=== PATIENT | female | born 1965 | race Caucasian/White ===

== ENCOUNTER 2017-06-22 10:12 | Emergency (ER) | payer BC, OTHER ==
--- NOTE | 2017-06-22 10:17 | PDOC ---
History of Present Illness - General Chief Complaint: Injury Stated Complaint: RT RIBCAGE PAIN Time Seen by Provider: 06/22/17 10:17 - History of Present Illness Initial Comments: 06/22/17 10:35 52yo F hx HTN p/w 3 days of right rib cage pain. Pt reports she was dancing the tango with her at home Wednesday night when he spun her and she fell onto the ground landing on her R ribs. REports no head strike as her head landed on pillows. Reports dull pain on her R ribs and is worried her ribs might be broken. Reports pain is worse with twisting movements and deep inspiration. No treatments tried. Denies other injuries. Has been in her [facility], denies recent fevers, chills, cp, sob, abd pain, n/v/d, LE edema, rashes. No recent travel or immobility. Past History - Past Medical History Allergies/Adverse Reactions: Allergies Allergy/AdvReac Type Severity Reaction Status Date / Time No Known Allergies Allergy Verified 06/22/17 10:13 Home Medications: Ambulatory Orders Bp Pill 1 tab PO DAILY 06/22/17 HTN: Yes - Immunization History Immunization Up to Date: No - Suicide/Smoking/Psychosocial Hx Smoking History: Never smoked Have you smoked in the past 12 months: No Hx Alcohol Use: No Substance Use Type: None Review of Systems - Review of Systems Comments:: 06/22/17 10:38 GENERAL/CONSTITUTIONAL: No fever or chills. No weakness. HEAD, EYES, EARS, NOSE AND THROAT: No change in vision. No ear pain or discharge. No sore throat. GASTROINTESTINAL: No nausea, vomiting, diarrhea or constipation. GENITOURINARY: No dysuria, frequency, or change in urination. CARDIOVASCULAR: No chest pain or shortness of breath. RESPIRATORY: No cough, wheezing, or hemoptysis. MUSCULOSKELETAL: +right rib pain. No neck or back pain. SKIN: No rash NEUROLOGIC: No headache, vertigo, loss of consciousness, or change in strength/ sensation. ENDOCRINE: No increased thirst. No abnormal weight change. HEMATOLOGIC/LYMPHATIC: No anemia, easy bleeding, or history of blood clots. ALLERGIC/IMMUNOLOGIC: No hives or skin allergy. *Physical Exam - Physical Exam Comments: 06/22/17 10:39 GENERAL: Awake, alert, and fully oriented, in no acute distress HEAD: No signs of trauma EYES: PERRLA, EOMI, sclera anicteric, conjunctiva clear ENT: Auricles normal inspection, hearing grossly normal, nares patent, oropharynx clear without exudates. Moist mucosa NECK: Normal ROM, supple, no lymphadenopathy, JVD, or masses LUNGS: Breath sounds equal, clear to auscultation bilaterally. No wheezes, and no crackles HEART: Regular rate and rhythm, normal S1 and S2, no murmurs, rubs or gallops ABDOMEN: Soft, nontender, normoactive bowel sounds. No guarding, no rebound. No masses EXTREMITIES: Normal range of motion, no edema. No clubbing or cyanosis. No cords, erythema, or tenderness MSK: +ttp along mid axillary line on R in ribs 7-9, no deformities or bruising. No crepitus NEUROLOGICAL: Normal speech, cranial nerves intact, negative pronator drift, 5/ 5 strength in all 4 extremities, normal sensation to light touch in all 4 extremities, normal cerebellar exam, normal gait, normal reflexes and tone SKIN: Warm, Dry, normal turgor, no rashes or lesions noted. Medical Decision Making - Medical Decision Making 06/22/17 11:11 52-year-old female with a history of hypertension presents with right-sided rib pain after falling and landing on her right ribs 3 days ago while dancing with her . Denies any other injuries. Vitals within normal limits. Exam with pinpoint tenderness to palpation over the right ribs. Differential includes but is not limited to pulmonary contusion versus rib fracture. Given that the patient has a good story for traumatic injury and no risk factors for clotting, this is unlikely to be pulmonary embolism. The patient's normal vitals also speak against this. Will obtain x-ray to evaluate for bony injury and give Motrin for pain control. 06/22/17 12:17 X-rays negative for fracture. Likely rib contusion. I discussed the physical exam findings, ancillary test results and final diagnoses with the patient. I answered all of the patient's questions. The patient was satisfied with the care received and felt comfortable with the discharge plan and treatment plan. The patient will call their primary care physician within 24 hours to arrange follow-up and will return to the Emergency Department with any new, persistent or worsening symptoms. *DC/Admit/Observation/Transfer Diagnosis at time of Disposition: Rib contusion - Discharge Dispostion Disposition: HOME Condition at time of disposition: Stable Admit: No - Referrals - Patient Instructions Printed Discharge Instructions: DI for Rib Contusion Additional Instructions: Follow up with your primary doctor within 1-3 days. Take ibuprofen 600mg every 6 hours as needed for pain. Return to the emergency department if you have any new, worsening, or concerning symptoms. - Post Discharge Activity - Attestations Physician Attestion: 06/22/17 12:20 I, Dr. Bin Skelton MD, attest that this document has been prepared under my direction and personally reviewed by me in its entirety. I further attest, that it accurately reflects all work, treatment, procedures and medical decision -making performed by me.
[2017-06-22 10:18] VITALS: BP 158/93; PULSE 70; TEMP 98.3; BMI 30.2
[2017-06-22] MEDS ORDERED: IBUPROFEN 600 MG TABLET (FP) PO ONE ×2 (10:55→11:01)
== END 2017-06-22 12:25 | disposition home or self-care (01) ==
LOC: FER 10:12
DX: S20.20XA Contusion of thorax, unspecified, initial encounter (principal); W18.39XA Other fall on same level, initial encounter; Y93.41 Activity, dancing; Y92.9 Unspecified place or not applicable; I10 Essential (primary) hypertension
CPT/HCPCS: 71020-TC; 71101-TC-RT; 99282-25

== ENCOUNTER 2021-03-18 14:00 | Emergency (ER) | payer BC, OTHER ==
[2021-03-18 14:45] VITALS: BP 138/89; PULSE 80; TEMP 98.9; BMI 31.1
== END 2021-03-18 15:33 | disposition home or self-care (01) ==
LOC: SUPCPDRO 14:00 → FER 14:00
DX: M79.675 Pain in left toe(s) (principal)
CPT/HCPCS: 73660-TC-LT-FY; 99283-25

== ENCOUNTER 2024-03-31 08:50 | Emergency (ER) | payer BC, OTHER ==
[2024-03-31 08:59] VITALS: BP 168/92; PULSE 70; RESP 18; TEMP 98.6; BMI 31.1
[2024-03-31] MEDS ORDERED: DIPHTH,PERTUSS(ACELL),TET 0.5 ML DISP.SYRIN IM ONE (09:32)
[2024-03-31] MEDS: DIPHTH,PERTUSS(ACELL),TET 0.5 ML DISP.SYRIN IM ONE (09:37)
== END 2024-03-31 10:36 | disposition home or self-care (01) ==
LOC: FER 08:50
PROC: 0HQEXZZ Repair Left Lower Arm Skin, External Approach (ICD-10-PCS; principal; 2024-03-31)
PROC: 3E0234Z Introduction of Serum, Toxoid and Vaccine into Muscle, Percutaneous Approach (ICD-10-PCS; 2024-03-31)
DX: S51.812A Laceration without foreign body of left forearm, initial encounter (principal); W25.XXXA Contact with sharp glass, initial encounter
CPT/HCPCS: 73090-TC-LT-FY; 90715; 99284-25